=== PATIENT | male | born 1975 | race Caucasian/White ===

== ENCOUNTER 2016-11-24 12:37 | Emergency (ER) | payer BC, OTHER ==
[2016-11-24] MEDS ORDERED: Sodium Chloride 0.9% 10 ML Syringe FLUSH PRN (12:46)
[2016-11-24] MEDS ORDERED: Sodium Chloride 0.9% 1,000 ML IV ONE (12:49)
[2016-11-24] MEDS ORDERED: Morphine 10 MG/ML Syringe IVPUSH ONE (13:00)
[2016-11-24] MEDS ORDERED: Ondansetron 4 MG/2 ML SDV IVPUSH ONE (13:01)
[2016-11-24] MEDS ORDERED: Albuterol/Ipratropium 3.0-0.5 MG/3 ML Neb Soln NEB ONE (13:02)
[2016-11-24 13:12] LABS: CHLORIDE,CL 104 mmol/L (98-107); SODIUM,NA 141 mmol/L (136-145)
[2016-11-24] MEDS ORDERED: HYDROmorphone 1 MG/ML Syringe IVPUSH ONE ×2 (13:36→14:37)
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
[2016-11-24] MEDS ORDERED: Iopamidol 612 MG/ML 100 ML Bottle IVPUSH ONE (15:11)
== END 2016-11-24 15:15 ==
LOC: LL.ED 12:37
DX: S27.0XXA Traumatic pneumothorax, initial encounter (principal); S22.41XA Multiple fractures of ribs, right side, initial encounter for closed fracture; S42.101A Fracture of unspecified part of scapula, right shoulder, initial encounter for closed fracture; S42.102A Fracture of unspecified part of scapula, left shoulder, initial encounter for closed fracture; F17.210 Nicotine dependence, cigarettes, uncomplicated; F90.9 Attention-deficit hyperactivity disorder, unspecified type; F31.9 Bipolar disorder, unspecified; V49.9XXA Car occupant (driver) (passenger) injured in unspecified traffic accident, initial encounter
CPT/HCPCS: 36415; 70450; 71010; 71260; 72125; 74177; 80053; 80305; 81001; 82272; 84484; 85025; 85379; 93005; 96365; 96366; 96375; 99285; G0480; Q9967; J1170; J2270; J2405

== ENCOUNTER 2016-12-03 11:04 | Emergency (ER) | payer OTHER, BC ==
--- NOTE | 2016-12-03 11:10 | EDM.PDOC ---
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 for further treatment and [email or web address]
[2016-12-03] MEDS ORDERED: Sodium Chloride 0.9% 10 ML Syringe FLUSH PRN (11:11)
[2016-12-03] MEDS ORDERED: Famotidine 20 MG/2 ML SDV IVPUSH ONE (11:11)
[2016-12-03 12:18] LABS: CHLORIDE,CL 107 mmol/L (98-107); SODIUM,NA 142 mmol/L (136-145)
[2016-12-03] MEDS ORDERED: Iopamidol 755 Mg/ML 100 ML Bottle IVPUSH ONE (12:45)
[2016-12-03 14:43] VITALS: BP 136/96
== END 2016-12-03 15:03 | disposition home or self-care (01) ==
LOC: LL.ED 11:04
DX: S27.0XXA Traumatic pneumothorax, initial encounter (principal); S22.41XA Multiple fractures of ribs, right side, initial encounter for closed fracture; S42.101A Fracture of unspecified part of scapula, right shoulder, initial encounter for closed fracture; F41.8 Other specified anxiety disorders; F17.200 Nicotine dependence, unspecified, uncomplicated; F32.9 Major depressive disorder, single episode, unspecified; J44.9 Chronic obstructive pulmonary disease, unspecified; M15.0 Primary generalized (osteo)arthritis; F19.90 Other psychoactive substance use, unspecified, uncomplicated; K02.9 Dental caries, unspecified; Z71.6 Tobacco abuse counseling; V49.9XXA Car occupant (driver) (passenger) injured in unspecified traffic accident, initial encounter
CPT/HCPCS: 36000; 36415; 71020; 71270; 80053; 80305; 81001; 82550; 82553; 83605; 83735; 83880; 84484; 84550; 85025; 85379; 85610; 85730; 87086; 99285; J7050; Q9967

== ENCOUNTER 2021-06-21 19:38 | Emergency (ER) | payer BC ==
[2021-06-21 19:50] VITALS: BP 102/60; PULSE 104
[2021-06-21] MEDS: Acetaminophen/HYDROcodone 325-5 MG Tab PO ONE (20:40)
[2021-06-21] MEDS: Amoxicillin/Clavulanate K 875-125 MG Tab PO ONE (21:06)
== END 2021-06-21 21:07 | disposition home or self-care (01) ==
LOC: LL.ED 19:38
DX: J18.9 Pneumonia, unspecified organism (principal); M43.6 Torticollis; J44.9 Chronic obstructive pulmonary disease, unspecified
CPT/HCPCS: 71046; 99283-25; 99284; A9270-GY

== ENCOUNTER 2022-08-07 09:21 | Emergency (ER) | payer MEDICAID ==
[2022-08-07] MEDS: Aspirin 81 MG Tab.Chew ONE (10:01)
[2022-08-07] MEDS: Aspirin 81 MG Tab.Chew PO ONE (10:01)
[2022-08-07 10:04] LABS: ANION GAP 9.4 meq/L (7-15)
[2022-08-07 10:48] LABS: CORONAVIRUS COVID-19 NAA NEGATIVE (NEGATIVE); RESPIRATORY SYNCYTIAL VIR NAA NEGATIVE (NEGATIVE)
[2022-08-07 11:19] VITALS: PULSE 68
[2022-08-07] MEDS: Propranolol 20 MG Tab PO ONE (11:32)
[2022-08-07] MEDS: Lisinopril 5 MG Tab PO ONE (11:34)
[2022-08-07 11:38] VITALS: BP 126/100
[2022-08-07 12:35] LABS: BARBITURATE SCREEN,URINE NEGATIVE (NEGATIVE); BENZODIAZEPINES SCREEN,URINE NEGATIVE (NEGATIVE); EDDP,URINE SCREEN NEGATIVE (NEGATIVE); TCA SCREEN,URINE NEGATIVE (NEGATIVE); THC SCREEN,URINE 50 NG/ML NEGATIVE (NEGATIVE)
[2022-08-07 12:37] LABS: BUPRENORPHINE SCREEN,URINE NEGATIVE (NEGATIVE)
== END 2022-08-07 11:50 | disposition home or self-care (01) ==
LOC: LL.ED 09:21
DX: R94.6 Abnormal results of thyroid function studies (principal); I10 Essential (primary) hypertension; R82.5 Elevated urine levels of drugs, medicaments and biological substances; J44.9 Chronic obstructive pulmonary disease, unspecified; F17.210 Nicotine dependence, cigarettes, uncomplicated; Z79.899 Other long term (current) drug therapy; Z20.822 Contact with and (suspected) exposure to COVID-19
CPT/HCPCS: 0241U; 36415; 71045; 80053; 80305-QW; 81001; 82550; 82947; 83735; 84439; 84443; 84480; 84484; 85025; 85379; 85610; 86376; 86800; 87086; 93010; 99284; 99285; A9270-GY

== ENCOUNTER 2024-01-18 12:13 | Emergency (ER) | payer MEDICAID, OTHER ==
[2024-01-18] MEDS ORDERED: Sodium Chloride 0.9% 10 ML Syringe FLUSH PRN (12:32)
[2024-01-18 12:48] LABS: BASOPHILS ABSOLUTE AUTO 0.04 K/uL (0.00-0.20); BASOPHILS PERCENT AUTO 0.4 % (0.0-2.0); EOSINOPHILS ABSOLUTE AUTO 0.11 K/uL (0.00-0.50); EOSINOPHILS PERCENT AUTO 1.2 % (0.0-5.0); HEMATOCRIT 42.7 % (39.0-49.0); LYMPHOCYTES ABSOLUTE AUTO 2.56 K/uL (0.50-3.50); LYMPHOCYTES PERCENT AUTO 27.3 % (10.0-50.0); MEAN CORPUSCULAR HEMOGLOBIN 31.8 pg (28.2-33.3); MEAN CORPUSCULAR HGB CONC 35.1 g/dL (31.7-36.0); MEAN CORPUSCULAR VOLUME 90.7 fL (84.0-98.0); MONOCYTES ABSOLUTE AUTO 0.79 K/uL (0.00-1.00); MONOCYTES PERCENT AUTO 8.4 % (2.0-14.0); NEUTROPHILS ABSOLUTE AUTO 5.87 K/uL (1.40-7.00); NEUTROPHILS PERCENT AUTO 62.7 % (45.0-80.0); PLATELET COUNT,PLT 245 K/uL (150-350); RED BLOOD CELL COUNT 4.71 M/uL (4.33-5.41); RED CELL DISTRIBUTION WIDTH 13.2 % (11.2-14.1); WHITE BLOOD CELL COUNT,WBC 9.4 K/uL (4.0-10.2)
[2024-01-18] MEDS: Meclizine 25 MG Tab PO ONE (12:59)
[2024-01-18] MEDS: Sodium Chloride 0.9% 1,000 ML IV ONE ×2 (12:59→14:38)
[2024-01-18] MEDS: Ondansetron 4 MG/2 ML SDV IVPUSH ONE (12:59)
[2024-01-18 13:10] LABS: LACTIC ACID 0.9 mmol/L (0.4-2.0)
[2024-01-18 13:20] LABS: BILIRUBIN,URINE NEGATIVE (NEGATIVE); COLOR,URINE YELLOW; GLUCOSE,URINE NEGATIVE (NEGATIVE); KETONES,URINE TRACE mg/dL (NEGATIVE); LEUKOCYTE ESTERASE,URINE SMALL (NEGATIVE); NITRITE,URINE NEGATIVE (NEGATIVE); OCCULT BLOOD,URINE TRACE-INTACT (NEGATIVE); PH,URINE 6.5 (5.0-9.0); PROTEIN,URINE NEGATIVE (NEGATIVE); UROBILINOGEN,URINE 0.2 E.U./dL (0.2-1.0)
[2024-01-18 13:21] LABS: ALANINE AMINOTRANSFERASE,ALT 25 U/L (12-78); ALBUMIN 3.7 g/dL (3.4-5.0); ALKALINE PHOSPHATASE 77 IU/L (46-116); ASPARTATE AMNIOTRANSFERASE,AST 13 U/L (15-37); BILIRUBIN TOTAL 0.5 mg/dL (0.2-1.0); BLOOD UREA NITROGEN,BUN 17 mg/dL (7-18); CALCIUM 9.3 mg/dL (8.5-10.1); CHLORIDE,CL 99 mmol/L (98-107); CREATININE 1.23 mg/dL (0.51-1.17); EST CRCL DRUG DOSING (CG) 75.84 mL/min; GLUCOSE RANDOM 87 mg/dL (70-99); MAGNESIUM 2.1 mg/dL (1.8-2.4); POTASSIUM,K 4.1 mmol/L (3.5-5.1); PROTEIN TOTAL,TP 7.6 g/dL (6.4-8.2); SODIUM,NA 137 mmol/L (136-145)
[2024-01-18 13:22] LABS: ESTIMATED GFR 72 mL/min (>=60); ETHANOL BLOOD MEDICAL < 0.000 g/dL (0.000-0.080)
[2024-01-18 13:26] LABS: APPEARANCE,URINE CLOUDY
[2024-01-18 13:27] LABS: BACTERIA,URINE FEW /HPF (NONE TO FEW); RBC,URINE 0-5 /HPF
[2024-01-18 13:32] LABS: AMPHETAMINES SCREEN, URINE NEGATIVE (NEGATIVE); BARBITURATE SCREEN,URINE NEGATIVE (NEGATIVE); BENZODIAZEPINES SCREEN,URINE NEGATIVE (NEGATIVE); BUPRENORPHINE SCREEN,URINE NEGATIVE (NEGATIVE); COCAINE METABOLITES,URINE NEGATIVE (NEGATIVE); EDDP,URINE SCREEN NEGATIVE (NEGATIVE); METHAMPHETAMINES SCREEN, URINE NEGATIVE (NEGATIVE); OXYCODONE SCREEN,URINE NEGATIVE (NEGATIVE); TCA SCREEN,URINE NEGATIVE (NEGATIVE); THC SCREEN,URINE 50 NG/ML NEGATIVE (NEGATIVE)
[2024-01-18] MEDS: SUMAtriptan 50 MG Tab PO ONE (15:18)
[2024-01-18] MEDS: methylPREDNISolone Sodium Succinate 125 MG/2 ML SDV IVPUSH ONE (15:19)
[2024-01-18] MEDS: Ketorolac 15 MG/ML SDV IVPUSH ONE (15:19)
[2024-01-18 16:16] VITALS: BP 110/74; PULSE 72
== END 2024-01-18 16:00 | disposition home or self-care (01) ==
LOC: LL.ED 12:13
DX: G44.321 Chronic post-traumatic headache, intractable (principal); R94.6 Abnormal results of thyroid function studies; J44.9 Chronic obstructive pulmonary disease, unspecified; Z87.820 Personal history of traumatic brain injury; Z79.899 Other long term (current) drug therapy
CPT/HCPCS: 36415; 70450; 80053; 80305; 80307; 81001; 83605; 83735; 84443; 84484; 85025; 85379; 87086; 87635; 93005; 96361; 96374; 96375; 99284; A9270; J1885; J2405; J2919; J7030; 93010; U0002

== ENCOUNTER 2024-01-23 13:08 | Observation (INO) | payer OTHER ==
[2024-01-23] MEDS ORDERED: Sodium Chloride 0.9% 10 ML Syringe FLUSH PRN (13:17)
[2024-01-23] MEDS: Sodium Chloride 0.9% 1,000 ML IV ONE ×3 (13:17→16:53)
[2024-01-23 13:26] LABS: BASOPHILS ABSOLUTE AUTO 0.04 K/uL (0.00-0.20); BASOPHILS PERCENT AUTO 0.2 % (0.0-2.0); HEMATOCRIT 40.5 % (39.0-49.0); LYMPHOCYTES PERCENT AUTO 12.3 % (10.0-50.0); MEAN CORPUSCULAR HEMOGLOBIN 31.3 pg (28.2-33.3); MEAN CORPUSCULAR HGB CONC 34.6 g/dL (31.7-36.0); MEAN CORPUSCULAR VOLUME 90.6 fL (84.0-98.0); MONOCYTES ABSOLUTE AUTO 1.58 K/uL (0.00-1.00); MONOCYTES PERCENT AUTO 7.8 % (2.0-14.0); NEUTROPHILS ABSOLUTE AUTO 16.24 K/uL (1.40-7.00); NEUTROPHILS PERCENT AUTO 79.7 % (45.0-80.0); PLATELET COUNT,PLT 293 K/uL (150-350); RED BLOOD CELL COUNT 4.47 M/uL (4.33-5.41); RED CELL DISTRIBUTION WIDTH 13.9 % (11.2-14.1); WHITE BLOOD CELL COUNT,WBC 20.4 K/uL (4.0-10.2)
[2024-01-23 13:48] LABS: ALANINE AMINOTRANSFERASE,ALT 31 U/L (12-78); ALKALINE PHOSPHATASE 89 IU/L (46-116); ASPARTATE AMNIOTRANSFERASE,AST 38 U/L (15-37); BILIRUBIN TOTAL 0.7 mg/dL (0.2-1.0); BLOOD UREA NITROGEN,BUN 74 mg/dL (7-18); CALCIUM 9.7 mg/dL (8.5-10.1); CARBON DIOXIDE,CO2 19.5 mmol/L (21.0-32.0); CHLORIDE,CL 100 mmol/L (98-107); ETHANOL BLOOD MEDICAL 0.003 g/dL (0.000-0.080); GLUCOSE RANDOM 95 mg/dL (70-99); MAGNESIUM 2.3 mg/dL (1.8-2.4); POTASSIUM,K 4.2 mmol/L (3.5-5.1); SODIUM,NA 143 mmol/L (136-145)
[2024-01-23 13:50] LABS: LACTIC ACID 2.4 mmol/L (0.4-2.0)
[2024-01-23 13:51] LABS: ANION GAP 27.7 meq/L (7-15)
[2024-01-23 13:52] LABS: CREATININE 4.16 mg/dL (0.51-1.17); ESTIMATED GFR 17 mL/min (>=60)
[2024-01-23 14:38] VITALS: BP 96/71; PULSE 108
[2024-01-23 14:44] LABS: APPEARANCE,URINE SLIGHTLY CLOUDY; BILIRUBIN,URINE MODERATE (NEGATIVE); COLOR,URINE YELLOW; GLUCOSE,URINE NEGATIVE (NEGATIVE); KETONES,URINE 80 mg/dL (NEGATIVE); LEUKOCYTE ESTERASE,URINE NEGATIVE (NEGATIVE); NITRITE,URINE NEGATIVE (NEGATIVE); OCCULT BLOOD,URINE MODERATE (NEGATIVE); PH,URINE 5.5 (5.0-9.0); PROTEIN,URINE 100 mg/dL (NEGATIVE); UROBILINOGEN,URINE 0.2 E.U./dL (0.2-1.0)
[2024-01-23 14:48] LABS: AMPHETAMINES SCREEN, URINE POSITIVE (NEGATIVE); BARBITURATE SCREEN,URINE NEGATIVE (NEGATIVE); BENZODIAZEPINES SCREEN,URINE NEGATIVE (NEGATIVE); BUPRENORPHINE SCREEN,URINE NEGATIVE (NEGATIVE); COCAINE METABOLITES,URINE NEGATIVE (NEGATIVE); EDDP,URINE SCREEN NEGATIVE (NEGATIVE); METHAMPHETAMINES SCREEN, URINE POSITIVE (NEGATIVE); OXYCODONE SCREEN,URINE NEGATIVE (NEGATIVE); TCA SCREEN,URINE NEGATIVE (NEGATIVE); THC SCREEN,URINE 50 NG/ML NEGATIVE (NEGATIVE)
[2024-01-23 14:49] LABS: BACTERIA,URINE FEW /HPF (NONE TO FEW); EPITHELIAL CELLS,URINE RARE /LPF; HYALINE CASTS,URINE MODERATE; RBC,URINE 0-5 /HPF; WBC,URINE 0-5 /HPF
[2024-01-23 14:50] LABS: MUCUS,URINE FEW /LPF (NEGATIVE)
[2024-01-23] MEDS ORDERED: Acetaminophen 325 MG Tab PO PRN (16:05)
[2024-01-23] MEDS ORDERED: Sodium Chloride 0.9% 1,000 ML IV SCH (16:15)
== END 2024-01-23 17:15 | disposition left against medical advice (07) ==
LOC: LL.ED 13:08 → LL.MS 15:37 → UNDOADMOB 15:37 → UNDODISOB 17:15
PROVIDERS: ADMIT Emergency Medicine; ATTEND Emergency Medicine
DX: N17.9 Acute kidney failure, unspecified (principal); E86.0 Dehydration; J44.9 Chronic obstructive pulmonary disease, unspecified; Z79.899 Other long term (current) drug therapy
CPT/HCPCS: 36415; 80053; 80305-QW; 80307; 81001; 83605; 83735; 85025; 93005; 96360; 96361; 99285-25; J7030

== ENCOUNTER 2024-05-07 01:10 | Emergency (ER) | payer MEDICAID, OTHER ==
[2024-05-07] MEDS: Sodium Chloride 0.9% 1,000 ML IV SCH (01:25)
[2024-05-07] MEDS ORDERED: Sodium Chloride 0.9% 10 ML Syringe FLUSH PRN (01:26)
[2024-05-07 02:02] LABS: BASOPHILS ABSOLUTE AUTO 0.03 K/uL (0.00-0.20); BASOPHILS PERCENT AUTO 0.3 % (0.0-2.0); EOSINOPHILS ABSOLUTE AUTO 0.46 K/uL (0.00-0.50); EOSINOPHILS PERCENT AUTO 4.6 % (0.0-5.0); HEMATOCRIT 45.5 % (39.0-49.0); HEMOGLOBIN 15.3 g/dL (13.1-16.8); IMMATURE GRAN ABSOLUTE AUTO 0.05 10^3/uL (0.00-0.04); IMMATURE GRAN PERCENT AUTO 0.5 % (0.0-0.4); LYMPHOCYTES ABSOLUTE AUTO 3.54 K/uL (0.50-3.50); LYMPHOCYTES PERCENT AUTO 35.6 % (10.0-50.0); MEAN CORPUSCULAR HEMOGLOBIN 30.7 pg (28.2-33.3); MEAN CORPUSCULAR HGB CONC 33.6 g/dL (31.7-36.0); MEAN CORPUSCULAR VOLUME 91.4 fL (84.0-98.0); MONOCYTES ABSOLUTE AUTO 0.88 K/uL (0.00-1.00); MONOCYTES PERCENT AUTO 8.8 % (2.0-14.0); NEUTROPHILS ABSOLUTE AUTO 4.99 K/uL (1.40-7.00); NEUTROPHILS PERCENT AUTO 50.2 % (45.0-80.0); PLATELET COUNT,PLT 253 K/uL (150-350); RED BLOOD CELL COUNT 4.98 M/uL (4.33-5.41); RED CELL DISTRIBUTION WIDTH 13.2 % (11.2-14.1)
[2024-05-07 02:19] LABS: ALANINE AMINOTRANSFERASE,ALT 21 U/L (12-78); ALBUMIN 3.2 g/dL (3.4-5.0); ALKALINE PHOSPHATASE 99 IU/L (46-116); ASPARTATE AMNIOTRANSFERASE,AST 13 U/L (15-37); BILIRUBIN TOTAL 0.4 mg/dL (0.2-1.0); BLOOD UREA NITROGEN,BUN 14 mg/dL (7-18); CALCIUM 8.2 mg/dL (8.5-10.1); CARBON DIOXIDE,CO2 30.8 mmol/L (21.0-32.0); CHLORIDE,CL 107 mmol/L (98-107); CREATININE 1.39 mg/dL (0.51-1.17); ETHANOL BLOOD MEDICAL 0.143 g/dL (0.000-0.080); GLUCOSE RANDOM 135 mg/dL (70-99); POTASSIUM,K 4.4 mmol/L (3.5-5.1); PROTEIN TOTAL,TP 7.3 g/dL (6.4-8.2); SODIUM,NA 145 mmol/L (136-145)
[2024-05-07 02:23] LABS: ANION GAP 11.6 meq/L (7-15); ESTIMATED GFR 62 mL/min (>=60)
[2024-05-07 02:24] VITALS: PULSE 75
[2024-05-07 02:43] VITALS: BP 104/69
== END 2024-05-07 02:38 | disposition left against medical advice (07) ==
LOC: LL.ED 01:10
DX: F10.10 Alcohol abuse, uncomplicated (principal); J44.89 Other specified chronic obstructive pulmonary disease; F17.210 Nicotine dependence, cigarettes, uncomplicated; Z79.899 Other long term (current) drug therapy; Y90.0 Blood alcohol level of less than 20 mg/100 ml
CPT/HCPCS: 36415; 80053; 80143; 80307; 85025; 99284; J7030